=== PATIENT | female | born 1990 | race Two or more races ===

== ENCOUNTER 2018-12-11 01:00 | Emergency (ER) | payer SELFPAY ==
[~2018-12-11] VITALS: Ht 157.5 cm; Wt 61.2 kg
[2018-12-11 01:16] VITALS: BP 130/72
[2018-12-11] MEDS ORDERED: IBUPROFEN 400 MG TABLET PO ONE (02:00)
[2018-12-11] MEDS ORDERED: IBUPROFEN 400 MG TABLET ONE (02:06)
== END 2018-12-11 02:17 | disposition home or self-care (01) ==
LOC: ER 01:04
DX: R51 Headache (principal); M54.2 Cervicalgia; M54.6 Pain in thoracic spine; M25.511 Pain in right shoulder; V49.59XA Passenger injured in collision with other motor vehicles in traffic accident, initial encounter; Y93.89 Activity, other specified; Y92.413 State road as the place of occurrence of the external cause; Y99.8 Other external cause status
CPT/HCPCS: 99282; A4606